=== PATIENT | male | born 1985 | race Hispanic/Latino ===

== ENCOUNTER 2017-09-20 07:59 | Emergency (ER) | payer SELFPAY ==
[2017-09-20 08:18] VITALS: TEMP 97.7; O2SAT 96
--- NOTE | 2017-09-20 08:36 | RAD ---
EXAM DESCRIPTION: Right ankle, 3 views CLINICAL HISTORY: pain and swelling FINDINGS/ IMPRESSION: Mild soft tissue swelling. Ankle mortise is symmetric. No fracture or focal osteochondral lesion of the ankle or tarsal bones Electronically signed by: Cong Hampton MD 09/20/2017 8:35 AM CDT
--- NOTE | 2017-09-20 09:07 | ED.PDOC ---
History of Present Illness - General Chief Complaint: Lower Extremity Injury Stated Complaint: right ankle pain Time Seen by Provider: 09/20/17 08:39 Source: patient Exam Limitations: no limitations Additional Information: INVERSION INJURY LAST PM. SPECIFICS UNKNOWN BY PT. C/O PAIN POST ASPECT R ANKLE , POST ASPECT. - History of Present Illness Pain - Lower Extremity: moderate: Right Ankle Improving Factors: nothing Worsening Factors: other - WEIGHT BEARING Allergies/Adverse Reactions: Allergies NO KNOWN ALLERGY Allergy (Verified 09/20/17 08:08) Home Medications: Ambulatory Orders Indomethacin 50 mg PO TID PRN #14 cap 09/20/17 Review of Systems - Review of Systems Constitutional: Denies: chills, fever EENTM: States: no symptoms reported Musculoskeletal: States: other - PAIN R ANKLE. . Denies: back pain, neck pain Skin: States: no symptoms reported, other - MILD SWELLING, NO ERYTHEMA. Neurological: States: no symptoms reported Endocrine: States: no symptoms reported Hematologic/Lymphatic: States: no symptoms reported Past Medical History (General) - Patient Medical History Hx Seizures: No Hx Stroke: No Hx Asthma: No Hx of COPD: No Hx Cardiac Disorders: No Hx Congestive Heart Failure: No Hx Hypertension: No Hx Thyroid Disease: No Hx Diabetes: No Hx Gastroesophageal Reflux: No Hx Renal Disease: No Surgical History: other Family Medical History - Family History Mother Family History: No Known Physical Exam - Physical Exam General Appearance: Alert, No apparent distress Eyes, Ears, Nose, Throat: PERRL/EOMI Neck: non-tender, normal inspection Back: normal inspection, no vertebral tenderness Leg: normal inspection, non-tender, no evidence of injury Ankle: limited ROM, other - NO INSTABILITY, NVI, GOOD DISTAL PULSES, NO MALEOLAR TTP, TTP POST ASPECT DISTAL ACHILLIE'S TENDON, TENDON INTACT. Foot: normal inspection, non-tender, no evidence of injury Neuro/Tendon: normal sensation, normal motor functions, normal tendon functions Mental Status: alert, oriented x 3 Skin: normal color, other - MILD SWELLING, NO ERYTHEMA, ECCHYMOSIS Progress - EKG/XRAY/CT XRAY: ANKLE, JOSE Departure - Departure Clinical Impression: Unspecified injury of right Achilles tendon, initial encounter Time of Disposition: 09:34 Disposition: Discharge to Home or Self Care Condition: Fair Departure Forms: ED Discharge - Pt. Copy, Patient Portal Self Enrollment Instructions: Sprain Prescriptions: Indomethacin 50 mg PO TID PRN #14 cap PRN Reason: Pain Home Medications: Ambulatory Orders Indomethacin 50 mg PO TID PRN #14 cap 09/20/17
[2017-09-20 10:41] VITALS: BP 110/74
== END 2017-09-20 09:50 | disposition home or self-care (01) ==
LOC: ER 07:59
DX: S86.001A Unspecified injury of right Achilles tendon, initial encounter (principal); X50.1XXA Overexertion from prolonged static or awkward postures, initial encounter

== ENCOUNTER 2017-12-05 03:34 | Emergency (ER) | payer OTHER ==
[2017-12-05] MEDS ORDERED: TETANUS,DIPHTHERIA,PERTUSSIS 1 EA SYG IM ONE (03:44)
[2017-12-05] MEDS ORDERED: SULFA/TRIMETH 800/160 (DS) TAB 1 EA TAB PO ONE (03:44)
[2017-12-05 03:46] VITALS: O2SAT 94
--- NOTE | 2017-12-05 03:46 | ED.PDOC ---
History of Present Illness - General Time Seen by Provider: 12/05/17 03:43 Source: patient Exam Limitations: no limitations - History of Present Illness Initial Comments: presented in custody due to a 3/4 in lac to the medial left elbow. he willl nt say how he got it. no pblm with rom. no evidence of foreign body. no other significant injuries. nvi distally. mild tingling in ulnar distribution. the patient was minimally cooperative with the exam and repair. Timing/Duration: 1 hour Severity: mild Improving Factors: nothing Worsening Factors: nothing Associated Symptoms: denies symptoms Allergies/Adverse Reactions: Allergies Ibuprofen Allergy (Severe, Verified 12/05/17 03:47) Rash Causes swelling and erythema to face and lips Home Medications: Ambulatory Orders Sulfa/Trimeth 800/160 (Ds) Tab [Bactrim DS Tab] 1 ea PO BID #10 tab 12/05/17 Review of Systems - Review of Systems Constitutional: States: no symptoms reported EENTM: States: no symptoms reported Respiratory: States: no symptoms reported Cardiology: States: no symptoms reported Gastrointestinal/Abdominal: States: no symptoms reported Genitourinary: States: no symptoms reported Musculoskeletal: States: see HPI Skin: States: see HPI Neurological: States: no symptoms reported Endocrine: States: no symptoms reported All other Systems: No Change from Baseline Past Medical History (General) - Patient Medical History Hx Seizures: No Hx Stroke: No Hx Asthma: No Hx of COPD: No Hx Cardiac Disorders: No Hx Congestive Heart Failure: No Hx Hypertension: No Hx Thyroid Disease: No Hx Diabetes: No Hx Gastroesophageal Reflux: No Hx Renal Disease: No Family Medical History - Family History Mother Family History: No Known Physical Exam - Physical Exam General Appearance: Alert, Comfortable, No apparent distress Eye Exam: bilateral normal Ears, Nose, Throat: hearing grossly normal, normal ENT inspection Respiratory: no respiratory distress, no accessory muscle use Cardiovascular/Chest: normal peripheral pulses, regular rate, rhythm, no edema Peripheral Pulses: radial,right: 2+, radial,left: 2+ Rectal Exam: deferred Back Exam: normal inspection Extremity: normal range of motion, no pedal edema, normal capillary refill Neurologic: commercial attache II-XII nml as tested, no motor/sensory deficits, alert, oriented x 3, other - minimally cooperative Skin Exam: normal color - lac as above Comments: Vital Signs - 24 hr 12/05/17 03:35 Temperature 99.5 F Pulse Rate [ 140 H Apical] Respiratory 22 Rate Blood Pressure 124/53 [Right Arm] O2 Sat by Pulse 94 L Oximetry Progress - Progress Progress: 12/05/17 03:47 patient presented in custody due to a 3/4 inch lac to the medial left elbow. xylocaine without epi x3 cc was used for local. peroxide used for cleaning. 3x3-0 sutures used for reapproximation. ebl less than 3 cc. bactrim given for prophylaxis and for 5 days after. tetanus given. er warnings for any worsening or sign of infection. sutures to come out in 10 days. mild tingling in ulnar distribution prior and after repair, but no loss of sensation or strength at this time. 12/05/17 03:59 Departure - Departure Clinical Impression: Laceration of elbow Qualifiers: Encounter type: initial encounter Laterality: left Qualified Code(s): S51.012A - Laceration without foreign body of left elbow, initial encounter Disposition: Discharge to Home or Self Care Condition: Good Diet: regular diet Activity: increase activity as tolerated Prescriptions: Sulfa/Trimeth 800/160 (Ds) Tab [Bactrim DS Tab] 1 ea PO BID #10 tab Home Medications: Ambulatory Orders Sulfa/Trimeth 800/160 (Ds) Tab [Bactrim DS Tab] 1 ea PO BID #10 tab 12/05/17 Additional Instructions: patient presented in custody due to a 3/4 inch lac to the medial left elbow. xylocaine without epi x3 cc was used for local. peroxide used for cleaning. 3x3-0 sutures used for reapproximation. ebl less than 3 cc. bactrim given for prophylaxis and for 5 days after. tetanus given. er warnings for any worsening or sign of infection. sutures to come out in 10 days. mild tingling in ulnar distribution prior and after repair, but no loss of sensation or strength at this time.
[2017-12-05] MEDS ORDERED: NEOMYCIN-BACITRACIN-POLYMYXIN 0.9 GM UD TOP ONE (04:01)
[2017-12-05] MEDS ORDERED: ACETAMINOPHEN-CAFF-BUTALBITAL 1 EA TAB PO ONE (04:02)
[2017-12-05 04:23] VITALS: BP 148/86; TEMP 99.4
== END 2017-12-05 04:10 ==
LOC: ER 03:34
DX: S51.012A Laceration without foreign body of left elbow, initial encounter (principal); Z23 Encounter for immunization; X58.XXXA Exposure to other specified factors, initial encounter; Y92.9 Unspecified place or not applicable

== ENCOUNTER 2018-02-01 14:27 | Emergency (ER) | payer SELFPAY ==
--- NOTE | 2018-02-01 14:42 | ED.PDOC ---
History of Present Illness - General Chief Complaint: Skin/Abrasion/Tear Stated Complaint: skin rash groin/back Time Seen by Provider: 02/01/18 14:35 Source: patient Exam Limitations: no limitations - History of Present Illness Initial Comments: Ascencion Gill 32 y/o male stated that he had itchy skin rash for the last one week and had applied caladryl but not better;also had rash on his groin for the last one month and had been itching.Denies chronic medical problem. Timing/Duration: week Severity: moderate Location: torso Improving Factors: nothing Worsening Factors: nothing Associated Symptoms: other - see hpi Allergies/Adverse Reactions: Allergies Ibuprofen Allergy (Severe, Verified 12/05/17 03:47) Rash Causes swelling and erythema to face and lips Home Medications: Ambulatory Orders Sulfa/Trimeth 800/160 (Ds) Tab [Bactrim DS Tab] 1 ea PO BID #10 tab 12/05/17 Triamcinolone Acetonide (Topic [Triamcinolone Acetonide] 0.1 % EX BID 14 Days # 90 gm 02/01/18 Review of Systems - Review of Systems Constitutional: States: no symptoms reported EENTM: States: no symptoms reported Respiratory: States: no symptoms reported Cardiology: States: no symptoms reported Gastrointestinal/Abdominal: States: no symptoms reported Genitourinary: States: no symptoms reported Musculoskeletal: States: no symptoms reported Skin: States: see HPI Neurological: States: no symptoms reported Past Medical History (General) - Patient Medical History Hx Seizures: No Hx Stroke: No Hx Dementia: No Hx Asthma: No Hx of COPD: No Hx Cardiac Disorders: No Hx Congestive Heart Failure: No Hx Pacemaker: No Hx Hypertension: No Hx Thyroid Disease: No Hx Diabetes: No Hx Gastroesophageal Reflux: No Hx Renal Disease: No Hx Cancer: No Hx of HIV: No Hx Hepatitis C: No Hx MRSA: No Surgical History: no surgical history - Vaccination History Hx Tetanus, Diphtheria Vaccination: No Hx Influenza Vaccination: No Hx Pneumococcal Vaccination: No - Social History Hx Tobacco Use: Yes Hx Chewing Tobacco Use: No Hx Alcohol Use: Yes - States consumed a 6 pack of beer tonight Hx Substance Use: No Hx Substance Use Treatment: No Hx Depression: No Hx Physical Abuse: No Hx Emotional Abuse: No Hx Suspected Abuse: No - Activities of Daily Living Patient Lives Alone: No Grooming Ability: Independent Eating (Feeding) Ability: Independent Toileting Ability: Independent Family Medical History - Family History Mother Family History: No Known Physical Exam - Physical Exam General Appearance: Alert, Comfortable, No apparent distress Eyes, Ears, Nose, Throat Exam: PERRL/EOMI, normal ENT inspection Neck: non-tender, full range of motion, supple Cardiovascular/Chest: normal peripheral pulses, regular rate, rhythm, no murmur Respiratory: chest non-tender, lungs clear, normal breath sounds, no respiratory distress Gastrointestinal/Abdominal: normal bowel sounds, non tender, soft Back Exam: normal inspection, no CVA tenderness Extremity: no pedal edema, no calf tenderness Neurologic: no motor/sensory deficits, alert, oriented x 3 Skin Exam: warm/dry, normal color Skin Problem Location: torso, other - groin Skin Character: erythema, rash Lymphatic: no adenopathy Departure - Departure Clinical Impression: Skin rash, Jock itch Time of Disposition: 14:45 Disposition: Discharge to Home or Self Care Condition: Fair Departure Forms: Patient Portal Self Enrollment, ED Discharge - Pt. Copy Instructions: Gavin Itch (DC), Gavin Itch, Terbinafine (Topical) Prescriptions: Triamcinolone Acetonide (Topic [Triamcinolone Acetonide] 0.1 % EX BID 14 Days # 90 gm Home Medications: Ambulatory Orders Sulfa/Trimeth 800/160 (Ds) Tab [Bactrim DS Tab] 1 ea PO BID #10 tab 12/05/17 Triamcinolone Acetonide (Topic [Triamcinolone Acetonide] 0.1 % EX BID 14 Days # 90 gm 02/01/18 Additional Instructions: OVER THE COUNTER MEDICATIONS-LAMISIL CREAM-Apply to groin am/pm with triamcinolone cream after taking shower for 4 weeks
[2018-02-01 14:49] VITALS: BP 112/79; O2SAT 97
[2018-02-01 14:53] VITALS: TEMP 98.1
== END 2018-02-01 14:54 | disposition home or self-care (01) ==
LOC: ER 14:27
DX: B35.6 Tinea cruris (principal); Z87.891 Personal history of nicotine dependence

== ENCOUNTER 2018-04-16 14:49 | Emergency (ER) | payer SELFPAY ==
[2018-04-16 15:04] VITALS: O2SAT 98
[2018-04-16] MEDS ORDERED: CHLORHEXIDINE GLUCONATE 4 % 15 ML UD TOP ONE (15:05)
[2018-04-16] MEDS ORDERED: POVIDONE IODINE 10 % 15 ML UD TOP ONE (15:05)
[2018-04-16] MEDS ORDERED: TETANUS,DIPHTHERIA,PERTUSSIS 1 EA SYG IM ONE (15:11)
[2018-04-16] MEDS ORDERED: traMADol HCL 50 MG TAB PO ONE (15:18)
--- NOTE | 2018-04-16 15:53 | RAD ---
EXAM DESCRIPTION: Middle finger,Left, 3 views CLINICAL HISTORY: 32 years Male, pain left middle finger, distal COMPARISON: None. FINDINGS: There is no definite evidence of acute fracture or dislocation or destructive bony lesion. On the lateral view, a tiny calcific density is seen near the volar margin of the base of the middle phalanx and the PIP joint. A donor site is not seen, and significance is questionable. This is not in the distal portion of the finger. There does appear to be slight soft tissue swelling or skin irregularity distally. IMPRESSION: No significant appearing bony abnormality identified. Please see comments above. Electronically signed by: Deuce Metcalf MD 04/16/2018 3:52 PM CDT
--- NOTE | 2018-04-16 16:05 | ED.PDOC ---
History of Present Illness - General Chief Complaint: Laceration Stated Complaint: L 3rd digit laceration Time Seen by Provider: 04/16/18 15:11 Source: patient, Vital Signs reviewed Exam Limitations: no limitations - History of Present Illness Initial Comments: Reports he cut his finger while cooking at about midnight last night. Occurred: yesterday Pain - Upper Extremity: mild: Hand, left Method of Injury: other - laceration Improving Factors: nothing Worsening Factors: nothing Allergies/Adverse Reactions: Allergies Ibuprofen Allergy (Severe, Verified 12/05/17 03:47) Rash Causes swelling and erythema to face and lips Home Medications: Ambulatory Orders NK [NK] 04/16/18 Review of Systems - Review of Systems Constitutional: States: no symptoms reported Musculoskeletal: States: no symptoms reported Skin: States: see HPI Neurological: States: no symptoms reported Hematologic/Lymphatic: States: no symptoms reported Past Medical History (General) - Patient Medical History Hx Seizures: No Hx Stroke: No Hx Dementia: No Hx Asthma: No Hx of COPD: No Hx Cardiac Disorders: No Hx Congestive Heart Failure: No Hx Pacemaker: No Hx Hypertension: No Hx Thyroid Disease: No Hx Diabetes: No Hx Gastroesophageal Reflux: No Hx Renal Disease: No Hx Cancer: No Hx of HIV: No Hx Hepatitis C: No Hx MRSA: No Surgical History: other - Vaccination History Hx Tetanus, Diphtheria Vaccination: No Hx Influenza Vaccination: Yes - 04/2018 Hx Pneumococcal Vaccination: No - Social History Hx Tobacco Use: No Hx Chewing Tobacco Use: No Hx Alcohol Use: No Hx Substance Use: No Hx Substance Use Treatment: No Hx Depression: No Hx Physical Abuse: No Hx Emotional Abuse: No Hx Suspected Abuse: No - Female History Patient : No Family Medical History - Family History Mother Family History: No Known Physical Exam - Physical Exam General Appearance: Alert, Comfortable, No apparent distress Neck: supple Wrist Exam: normal inspection, no evidence of injury Hand Exam: laceration - volar aspect of left index finger, distal phalanx, soft tissue tenderness Neuro/Tendon: normal motor functions, normal tendon functions, responds to pain , sensory deficit Mental Status: alert, oriented x 3 Skin Exam: normal color, warm/dry Progress - Progress Progress: 04/17/18 04:42 The description of how he cut it & where it is located seems unlikely. It is a stellate wound with a significant flap that appears nonviable. The wound appears to be more than a day old. I debrided off the flap & will leave the remaing open as there is a significant loss of covering tissue. - EKG/XRAY/CT XRAY: hand - no fx or FB Departure - Departure Clinical Impression: Finger laceration Qualifiers: Encounter type: initial encounter Finger: middle finger Damage to nail status: without damage Foreign body presence: without foreign body Laterality: left Qualified Code(s): S61.213A - Laceration without foreign body of left middle finger without damage to nail, initial encounter Time of Disposition: 16:04 Disposition: Discharge to Home or Self Care Condition: Good Departure Forms: ED Discharge - Pt. Copy, Patient Portal Self Enrollment Instructions: Wound Care (DC) Home Medications: Ambulatory Orders NK [NK] 04/16/18
[2018-04-16 17:12] VITALS: BP 152/99
== END 2018-04-16 15:20 | disposition home or self-care (01) ==
LOC: ER 14:49
DX: S61.213A Laceration without foreign body of left middle finger without damage to nail, initial encounter (principal); Y93.G1 Activity, food preparation and clean up; Z88.6 Allergy status to analgesic agent; Y92.9 Unspecified place or not applicable; Z23 Encounter for immunization

== ENCOUNTER → 2020-01-15 | Outpatient (CLI) | payer OTHER | LOC: YCFC.O 14:19 | PROVIDERS: ATTEND Family Medicine | DX: Z20.828 Contact with and (suspected) exposure to other viral communicable diseases (principal) ==

== ENCOUNTER 2020-02-27 06:37 | Emergency (ER) | payer OTHER, SELFPAY ==
[2020-02-27] MEDS ORDERED: TETRACAINE HCL 0.5% OPHTH SOL 1 DROP ONE (07:03)
[2020-02-27] MEDS ORDERED: FLUORESCEIN SODIUM OPHTH STRIP ONE (07:03)
[2020-02-27] MEDS ORDERED: OPHTHALMIC SALT SOLUTION 120 ML BTTL ONE (07:04)
[2020-02-27 07:15] VITALS: TEMP 97.9
--- NOTE | 2020-02-27 07:19 | ED.PDOC ---
History of Present Illness - General Chief Complaint: Eye Problems Stated Complaint: something in right eye Time Seen by Provider: 02/27/20 07:19 Source: patient - History of Present Illness Initial Comments: 34-year-old male who presents with chief complaint of right eye pain. 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 Denies any pain yesterday. States he woke up this morning just prior to arrival with new onset pain in the right eye, thinks he may have possibly a metallic shaving in the right eye which is causing irritation. Reports constant scratching 8/10 severity pain throughout the entire right eye, worse with opening the eye and bright lights. Reports blurry vision throughout the right eye. Denies any redness, swelling, discharge. He tried flushing the eye this morning with water without relief. Allergies/Adverse Reactions: Allergies NO KNOWN ALLERGY Allergy (Verified 02/27/20 07:15) Home Medications: Ambulatory Orders NK 04/16/18 Review of Systems - Review of Systems Review of Systems: 02/27/20 08:02 As per HPI All other Systems: Reviewed and Negative Past Medical History (General) - Patient Medical History Hx Seizures: No Hx Stroke: No Hx Dementia: No Hx Asthma: No Hx of COPD: No Hx Cardiac Disorders: No Hx Congestive Heart Failure: No Hx Pacemaker: No Hx Hypertension: No Hx Thyroid Disease: No Hx Diabetes: No Hx Gastroesophageal Reflux: No Hx Renal Disease: No Hx Cancer: No Hx of HIV: No Hx Hepatitis C: No Hx MRSA: No Surgical History: no surgical history - Vaccination History Hx Tetanus, Diphtheria Vaccination: No Hx Influenza Vaccination: Yes Hx Pneumococcal Vaccination: No - Social History Hx Tobacco Use: No Hx Chewing Tobacco Use: No Hx Alcohol Use: Yes Hx Substance Use: No Hx Substance Use Treatment: No Hx Depression: No Hx Physical Abuse: No Hx Emotional Abuse: No Hx Suspected Abuse: No - Female History Patient : No Family Medical History - Family History Mother Family History: No Known Physical Exam - Physical Exam General Appearance: Alert, Comfortable, No apparent distress Eye Exam: right other - Less than 1 mm metallic shaving noted in the upper right eyelid. No redness/discharge/swelling of the eye. Fluorescein staining reveals no corneal abrasions or abnormalities., left normal Ears, Nose, Throat: hearing grossly normal Neck: normal inspection Respiratory: lungs clear, normal breath sounds Cardiovascular/Chest: normal peripheral pulses, regular rate, rhythm Gastrointestinal/Abdominal: non tender, soft Back Exam: normal inspection Extremity: normal range of motion, normal inspection Neurologic: genetic technologist II-XII nml as tested, no motor/sensory deficits, alert, normal mood/affect, oriented x 3 Skin Exam: normal color Progress - Progress Progress: 02/27/20 08:04 Right eye pain -Appears due to metallic foreign body in the right eye. Removed easily in the ED with cotton tip swab. The patient reported immediate relief and congregation of vision to normal following removal of foreign body. The eye was also flushed copiously with saline solution. Fluorescein staining of the right eye revealed no evidence of corneal abrasion. -Other diagnoses considered: conjunctivitis, corneal abrasion, keratitis, intraocular foreign body, glaucoma, etc... -We will place on erythromycin ointment to the right eye 4 times daily for 5 days to prevent infection. -Advised follow-up with optometry in the next 4 to 5 days for repeat examination of the right eye. Discharged home in good condition return warnings discussed. Montana Gonzalez MD Billing #[id number] Departure - Departure Clinical Impression: Foreign body of right eye Qualifiers: Encounter type: initial encounter Qualified Code(s): T15.91XA - Foreign body on external eye, part unspecified, right eye, initial encounter Time of Disposition: 07:59 Disposition: Discharge to Home or Self Care Condition: Good Departure Forms: ED Discharge - Pt. Copy, Patient Portal Self Enrollment Instructions: DI for Eye Pain, Foreign Body in Eye (DC) Diet: resume usual diet Activity: increase activity as tolerated Referrals: Rosemarie Rivers MD [Primary Care Provider] - 1-2 Weeks Home Medications: Ambulatory Orders NK 04/16/18 Additional Instructions: Continue applying the erythromycin eye ointment 4 times a day for the next 5 days. Return to ED if you develop worsening pain, redness, swelling, or discharge in the right eye. Follow-up with the powered bridge specialist is recommended in the next 4-5 days for repeat examination of the right eye. 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
[2020-02-27] MEDS: ERYTHROMYCIN OPHTH OINT 1 APPLIC OPHTH ONE (08:04)
[2020-02-27 08:17] VITALS: BP 138/90; O2SAT 96
== END 2020-02-27 08:17 | disposition home or self-care (01) ==
LOC: ER 06:37
DX: T15.11XA Foreign body in conjunctival sac, right eye, initial encounter (principal); Y99.0 Civilian activity done for income or pay; Y92.9 Unspecified place or not applicable